=== PATIENT | female | born 1985 | race Caucasian/White ===

== ENCOUNTER 2020-04-18 10:13 | Outpatient (CLI) | payer OTHER ==
[~2020-04-18 10:13] MED LIST: KETO10TA2 PO
== END 2020-04-18 10:14 | disposition home or self-care (01) ==
LOC: RX STUDY 10:13
PROVIDERS: ATTEND Obstetrics & Gynecology Reproductive Endocrinology
DX: N94.4 Primary dysmenorrhea (principal); D25.9 Leiomyoma of uterus, unspecified